=== PATIENT | female | born 1990 | race Caucasian/White ===

== ENCOUNTER → 2022-05-23 10:32 | Outpatient (BNVA) | payer OTHER, SELFPAY | PROVIDERS: PCP Nurse Practitioner Family; Visit Provider Nurse Practitioner Family | DX: R11.10 Vomiting, unspecified (principal); R19.7 Diarrhea, unspecified | CPT/HCPCS: 87400 ==

== ENCOUNTER 2022-06-25 02:37 | Emergency (ER) | payer OTHER, SELFPAY ==
[2022-06-25 02:41] VITALS: BP 137/86; PULSE 70; RESP 18; TEMP 36.6; O2SAT 99; BMI 43.6
--- NOTE | 2022-06-25 02:51 | CTR_ITS ---
PROCEDURE INFORMATION: Exam: CT Abdomen And Pelvis Without Contrast Exam date and time: 06/25/2022 3:53 AM Age: 32 years old Clinical indication: Abdominal pain; Prior surgery; Surgery type: Gb; Patient HX: C/O left flank pain. History of nephrolithiasis. ; Additional info: L flank pain TECHNIQUE: Imaging protocol: Computed tomography of the abdomen and pelvis without contrast. Radiation optimization: All CT scans at this facility use at least one of these dose optimization techniques: automated exposure control; mA and/or kV adjustment per patient size (includes targeted exams where dose is matched to clinical indication); or iterative reconstruction. REPORTING DATA: Count of CT and Cardiac NM exams in prior 12 months: This patient has received 0 known CTs and 0 known cardiac nuclear medicine studies in the 12 months prior to the current study. COMPARISON: No relevant prior studies available. RADIATION DOSE METRICS: Total DLP (mGy-cm): 1139.41 FINDINGS: Lungs: The lung bases are clear. No effusion Liver: Normal. No mass. Gallbladder and bile ducts: There has been a cholecystectomy. Pancreas: Normal. No ductal dilation. Spleen: Normal. No splenomegaly. Adrenal glands: Normal. No mass. Kidneys and ureters: Multiple nonobstructing bilateral renal pelvis stones, largest measures 4 mm. Stomach and bowel: Mild amount of formed stool in the colon. Appendix: No evidence of appendicitis. Intraperitoneal space: Unremarkable. No free air. No significant fluid collection. Vasculature: Unremarkable. No abdominal aortic aneurysm. Lymph nodes: Unremarkable. No enlarged lymph nodes. Urinary bladder: Unremarkable as visualized. Reproductive: Unremarkable as visualized. Bones/joints: Unremarkable. No acute fracture. Soft tissues: Unremarkable. CT/CT kidney stone [id number] IMPRESSION: 1. Multiple nonobstructing bilateral renal pelvis stones, largest measures 4 mm. 2. Mild constipation.
--- NOTE | 2022-06-25 03:04 | ED_ITS ---
HPI - Female Genitourinary General: Chief complaint: Urogenital-Female Stated complaint: left lower flank pain Time Seen by Provider: 06/25/22 02:39 Source: patient Mode of arrival: ambulatory Limitations: no limitations History of Present Illness: 32-year-old female states she has had 1 kidney stone in the past and states that she woke up this morning at 1 AM with severe left flank pain radiates into her groin states the pain is a 9 out of 10 she is caused some nausea denies any worsening proving factors states it does feel like her previous kidney stone denies any dysuria. Associated symptoms: Deny abdominal pain, headache(s) or nausea Date of Last Menstrual Period: 06/02/22 Review of Systems Const: Denies: fever(s), chills, body aches or change in appetite Eyes: Denies: blurry vision or eye discomfort ENMT: Denies: throat pain or dental pain Card: Denies: chest pain Resp: Denies: dyspnea GI: Denies: abdominal pain, nausea, vomiting or diarrhea : Reports: flank pain Musc: Denies: neck pain or back pain Skin/Breast: Denies: rash Neuro: Denies: headache(s) Psych: Denies: depression Raj/Lymph: Denies: easy bruising All/Imm: Denies: urticaria PFSH ED PFSH: Surgical History (Updated 06/25/22 @ 03:04 by Stephany Sawant MD) Hx of cholecystectomy Family History (Updated 07/14/21 @ 14:34 by Candace Jaramillo LPN) Other Diabetes Heart disease Hypertension Social History Smoking and tobacco status: never smoked Female Reproductive History: Date of last menstrual period: 06/02/22 Physical Exam Const: COMMON NORMALS: no acute distress, patient oriented x3 and healthy appearing HENMT: COMMON NORMALS: normocephalic and atraumatic HEAD & SCALP: normocephalic and atraumatic Eye: COMMON NORMALS: Equal, round and reactive pupils present and EOMs intact bilaterally PUPIL: Yes Equal, round and reactive pupils present Neck/C-Spine: COMMON NORMALS: full ROM and supple Chest: COMMONS NORMALS: normal inspection of the chest and normal palpation of entire chest wall Resp: COMMON NORMALS: normal respiratory effort, No retractions, No use of accessory muscles and clear to auscultation bilaterally AUSCULTATION: clear to auscultation bilaterally Cardio: COMMON NORMALS: regular rate, regular rhythm and No murmurs present (Cardio) RATE: regular rate RHYTHM: regular rhythm GI: COMMON NORMALS: Normal to inspection, nondistended, normoactive bowel sounds present, Soft to palpation, non-tender and no masses PALPATION: Yes Soft to palpation Extremity: COMMON NORMALS: normal to inspection and full ROM Neuro: COMMON NORMALS: patient oriented x3, moves all extremities and no focal motor deficits Psych: COMMON NORMALS: mental status grossly normal, Normal thought process present and cooperative THOUGHT PROCESS: Normal thought process present Skin: COMMON NORMALS: no rashes or lesions noted and no wounds GENERAL SKIN EXAM: no rashes or lesions noted Course Vital Signs: Vital signs: Vital Signs Temperature 97.8 F 06/25/22 02:41 Pulse Rate 73 06/25/22 03:34 Respiratory Rate 16 06/25/22 03:34 Blood Pressure 150/81 06/25/22 03:34 Pulse Oximetry 97 06/25/22 03:34 MDM - Female Medical Decision Making Patient presents here with flank pain she likely recently passed a kidney stone blood work here is normal she feels much improved she is stable for discharge she is to follow-up PCP and return if worsening. Lab Data 06/25/22 03:18 06/25/22 03:18 Radiology Impressions Abdomen/Pelvis CT 06/25/22 02:51 IMPRESSION: 1. Multiple nonobstructing bilateral renal pelvis stones, largest measures 4 mm. 2. Mild constipation. Laboratory Results WBC 7.4 10^3/uL (4.0-10.0) 06/25/22 03:18 RBC 5.41 10^6/uL (4.1-5.3) H 06/25/22 03:18 Hgb 14.5 g/dL (11.5-15.3) 06/25/22 03:18 Hct 45.9 % (37.0-47.0) 06/25/22 03:18 MCV 84.8 fl (81-99) 06/25/22 03:18 MCH 26.8 pg (28.0-34.0) L 06/25/22 03:18 MCHC 31.6 g/dL (30.0-36.0) 06/25/22 03:18 RDW 13.2 % (12.1-15.1) 06/25/22 03:18 Plt Count 256 10^3/cmm (130-400) 06/25/22 03:18 MPV 11.2 fL (7.4-10.4) H 06/25/22 03:18 Neut % (Auto) 68.0 % 06/25/22 03:18 Lymph % (Auto) 20.8 % 06/25/22 03:18 [place] % (Auto) 9.3 % 06/25/22 03:18 Eos % (Auto) 1.1 % 06/25/22 03:18 Baso % (Auto) 0.5 % 06/25/22 03:18 Neut # (Auto) 5.00 10^3/uL (1.8-7.7) 06/25/22 03:18 Lymph # (Auto) 1.5 10^3/uL (0.8-4.8) 06/25/22 03:18 [place] # (Auto) 0.7 10^3/uL (0.2-0.9) 06/25/22 03:18 Eos # (Auto) 0.1 10^3/uL (0.0-0.8) 06/25/22 03:18 Baso # (Auto) 0.0 10^3/uL (0.0-0.1) 06/25/22 03:18 Nucleated RBC % (auto) 0 % 06/25/22 03:18 Nucleated RBCs # 0.0 /100WBC 06/25/22 03:18 Sodium 138 mmol/L (136-145) 06/25/22 03:18 Potassium 4.2 mmol/L (3.5-5.1) 06/25/22 03:18 Chloride 100 mmol/L (98-107) 06/25/22 03:18 Carbon Dioxide 28 mmol/L (22-29) 06/25/22 03:18 Anion Gap 14.2 (5-19) 06/25/22 03:18 BUN 16 mg/dL (6-20) 06/25/22 03:18 Creatinine 0.8 mg/dL (0.5-0.9) 06/25/22 03:18 GFR Calculation 82.1 mL/min (90-130) L 06/25/22 03:18 Glucose 123 mg/dL (65-115) H 06/25/22 03:18 Calculated Osmolality 289 mOsm/kg (285-295) 06/25/22 03:18 Calcium 9.6 mg/dL (8.5-10.5) 06/25/22 03:18 Total Bilirubin 0.4 mg/dL (0.15-1.2) 06/25/22 03:18 AST 28 U/L (0-32) 06/25/22 03:18 ALT 31 U/L (0-33) 06/25/22 03:18 Alkaline Phosphatase 144 U/L (35-105) H 06/25/22 03:18 Total Protein 7.9 g/dL (6.6-8.7) 06/25/22 03:18 Albumin 4.3 g/dL (3.5-5.2) 06/25/22 03:18 Globulin 3.6 g/dL (1.3-4.6) 06/25/22 03:18 Lipase 42 U/L (13-60) 06/25/22 03:18 HCG, Qual Negative (Negative) 06/25/22 03:18 Urine Color Yellow (Yellow) 06/25/22 02:50 Urine Appearance Clear (CLEAR) 06/25/22 02:50 Urine pH 5 (5-7) 06/25/22 02:50 Ur Specific [place] 1.020 (1.005-1.030) 06/25/22 02:50 Urine Protein Neg (Negative) 06/25/22 02:50 Urine Glucose (UA) Norm (Normal) 06/25/22 02:50 Urine Ketones Negative (Negative) 06/25/22 02:50 Urine Blood 3+ (Negative) H 06/25/22 02:50 Urine Nitrate Negative (Negative) 06/25/22 02:50 Urine Bilirubin Neg (Negative) 06/25/22 02:50 Urine Urobilinogen Norm mg/dL (Negative) 06/25/22 02:50 Ur Leukocyte Esterase Negative (Negative) 06/25/22 02:50 Urine RBC 10-15 /hpf (0-2) H 06/25/22 02:50 Urine WBC 0-4 /hpf (0-5) H 06/25/22 02:50 Ur Squamous Epith Cells 0-4 /hpf (0-5) H 06/25/22 02:50 Amorphous Sediment Not Reportable 06/25/22 02:50 Urine Bacteria 1+ /hpf (NONE) H 06/25/22 02:50 Discharge Plan Discharge Patient Disposition: Home Clinical Impression: Flank pain Condition: Stable Prescriptions: New hydrocodone-acetaminophen 5-325 mg tablet 1 tab PO Q6H PRN (Reason: pain) Qty: 14 0RF ondansetron 4 mg tablet,disintegrating 4 mg PO Q6H PRN (Reason: nausea and vomiting) Qty: 14 0RF Discharge Orders: Discharge ED (Routine); Ordered 06/25/22 Ordered By: Stephany Sawant Referrals: Joanna Guadalupe FNP [Primary Care Provider] - 1-3 days Discharge Diet: Advance as tolerated Discharge Activity: Resume usual activity Patient Instructions: Flank Pain (ED) Coding Level of Care Code ED Heliotherapist for Mahesh Thomas
[2022-06-25 03:23] LABS: Basophils % 0.5 %; Eosinophils # 0.1 10^3/uL (0.0-0.8); Eosinophils % 1.1 %; Hematocrit 45.9 % (37.0-47.0); Hemoglobin 14.5 g/dL (11.5-15.3); Lymphocytes # 1.5 10^3/uL (0.8-4.8); Lymphocytes % 20.8 %; Mean Corpuscular HGB Conc 31.6 g/dL (30.0-36.0); Mean Corpuscular Hemoglobin 26.8 pg (28.0-34.0); Mean Corpuscular Volume 84.8 fl (81-99); Mean Platelet Volume 11.2 fL (7.4-10.4); Monocytes # 0.7 10^3/uL (0.2-0.9); Monocytes % 9.3 %; Nucleated Red Blood Cells % 0 %; Platelet Count 256 10^3/cmm (130-400); Red Blood Count 5.41 10^6/uL (4.1-5.3); Red Cell Distribution Width 13.2 % (12.1-15.1); White Blood Count 7.4 10^3/uL (4.0-10.0)
[2022-06-25 03:34] VITALS: BP 150/81; PULSE 73; RESP 16; O2SAT 97
[2022-06-25] MEDS: morphine 4 mg/mL SDV 1 mL IVP (03:37)
[2022-06-25] MEDS: ondansetron 2 mg/ML SDV 2 mL 4 MG IVP (03:37)
[2022-06-25 03:42] LABS: Alanine Aminotransferase 31 U/L (0-33); Albumin Level 4.3 g/dL (3.5-5.2); Alkaline Phosphatase 144 U/L (35-105); Anion Gap 14.2 (5-19); Aspartate Amino Transferase 28 U/L (0-32); Blood Urea Nitrogen 16 mg/dL (6-20); Calcium 9.6 mg/dL (8.5-10.5); Carbon Dioxide 28 mmol/L (22-29); Chloride 100 mmol/L (98-107); Globulin 3.6 g/dL (1.3-4.6); Glomerular Filtration Rate 82.1 mL/min (90-130); Glucose 123 mg/dL (65-115); Lipase 42 U/L (13-60); Osmolality Calculated 289 mOsm/kg (285-295); Potassium 4.2 mmol/L (3.5-5.1); Sodium 138 mmol/L (136-145); Total Bilirubin 0.4 mg/dL (0.15-1.2); Total Protein 7.9 g/dL (6.6-8.7)
[2022-06-25 03:45] LABS: Add Urine Microscopic? YES; Bilirubin Urine Neg (Negative); Blood Urine 3+ (Negative); Glucose Urine UA Norm (Normal); Ketones Urine Negative (Negative); Leukocyte Esterase Urine Negative (Negative); Nitrate Urine Negative (Negative); Protein Urine Neg (Negative); Urine Appearance Clear (CLEAR); Urine Color Yellow (Yellow); Urobilinogen Urine Norm (Negative); pH Urine 5 (5-7)
[2022-06-25 03:47] LABS: Bacteria Urine 1+ /hpf; Squamous Epithelial Cell Urine 0-4 /hpf (0-5); WBC Urine 0-4 /hpf (0-5)
[2022-06-25 03:49] LABS: HCG, Serum Qual Negative (Negative)
[2022-06-25 04:52] VITALS: BP 140/67; PULSE 56; RESP 16; O2SAT 96
== END 2022-06-25 04:53 | disposition home or self-care (01) ==
PROVIDERS: Emergency Provider Emergency Medicine; PCP Nurse Practitioner Family
DX: N20.0 Calculus of kidney (principal)
CPT/HCPCS: 74176; 80053; 81001; 83690; 84703; 85025; 96374; 96375; 99285; J2270; J2405